=== PATIENT | female | born 1995 | race Caucasian/White ===

== ENCOUNTER 2017-05-17 10:42 | Observation (INO) | payer MEDICAID ==
[~2017-05-17] VITALS: Ht 172.7 cm; Wt 73.6 kg
[2017-05-17 11:30] LABS: BLOOD UREA NITROGEN 10 mg/dL (7-18)
[2017-05-17 11:37] LABS: ASPARTATE AMINO TRANSFERASE 10 U/L (15-37)
[2017-05-17 11:40] LABS: ACETAMINOPHEN < 2 mcg/mL (10-30)
[2017-05-17 11:41] LABS: DAU SCREEN DISCLAIMER
[2017-05-17] MEDS ORDERED: ONDANSETRON ODT 4 MG PO PRN (14:30)
[2017-05-17] MEDS: ENOXAPARIN 40 MG/0.4 ML SQ SCH (15:00)
[2017-05-17 15:10] VITALS: BP 111/69
[2017-05-17 20:03] VITALS: BP 110/69
[2017-05-18 08:10] VITALS: BP 119/80
[2017-05-18] MEDS: ACETAMINOPHEN 325 MG TABLET PO PRN (16:02)
[2017-05-18] MEDS: ENOXAPARIN 40 MG/0.4 ML SQ SCH (16:03)
[2017-05-18 19:58] VITALS: BP 109/70
[2017-05-19 08:00] VITALS: BP 108/71
[2017-05-19] MEDS ORDERED: ENOXAPARIN 40 MG/0.4 ML SQ SCH (15:00)
[2017-05-19 19:54] VITALS: BP 112/73
[2017-05-20 08:01] VITALS: BP 115/78
[2017-05-20] MEDS: ACETAMINOPHEN 325 MG TABLET PO PRN (10:13)
== END 2017-05-20 12:49 | disposition home or self-care (01) ==
LOC: ED 12:50 → EDIP 12:55 → 3E 14:45
PROVIDERS: ADMIT Internal Medicine; ATTEND Internal Medicine
DX: R45.851 Suicidal ideations (principal); F31.9 Bipolar disorder, unspecified; Q65.89 Other specified congenital deformities of hip; Z91.5 Personal history of self-harm
CPT/HCPCS: 36415; 80053; 80307; 80329; 84703; 85025; 96372; 99285; G0378; J1650; G0480